=== PATIENT | male | born 1945 | race Caucasian/White ===

== ENCOUNTER → 2016-11-30 | Outpatient (CLI) | payer MEDICARE ==
--- NOTE | 2016-11-30 12:35 | XR ---
EXAMINATION TYPE: XR knee complete RT DATE OF EXAM: 11/30/2016 12:28 PM CLINICAL HISTORY: pain TECHNIQUE: Frontal, lateral and oblique images of the right foot are obtained. COMPARISON: None. FINDINGS: There is no acute fracture/dislocation evident. Total knee arthroplasty is in place with f emoral and tibial components appearing well seated. Small suprapatellar joint effusion noted. IMPRESS ION: There is no acute fracture or dislocation. ICD 10 NO FRACTURE, INITIAL EVALUATION
== END | disposition home or self-care (01) ==
LOC: RADXRMAIN 12:13
PROVIDERS: ATTEND Family Medicine
DX: M25.561 Pain in right knee (principal)

== ENCOUNTER 2018-04-25 10:09 | Day surgery (SDC) | payer MEDICARE ==
[2018-04-23 11:49] VITALS: BMI 30.2
[~2018-04-25 10:09] MED LIST: LACTATED RINGERS 1,000 ML IV SCH; LIDOCAINE 1% 20 ML VIAL (10MG/ML) FOR IV START INTRADERMA PRN
[2018-04-25 10:38] VITALS: RESP 16; TEMP 98.2
[2018-04-25] MEDS ORDERED: PROPOFOL 10 MG/ML 20 ML VIAL IV ONE (10:47)
--- NOTE | 2018-04-25 10:49 | P.GSHP ---
History of Present Illness H&P Date: 04/25/18 Chief Complaint: Colon cancer screening Patient here today for colonoscopy. Last colonoscopy over 10 years ago. No bowel related complaints. No family history of colon cancer. Past Medical History Past Medical History: Osteoarthritis (OA) History of Any Multi-Drug Resistant Organisms: None Reported Past Surgical History: Joint Replacement, Tonsillectomy Additional Past Surgical History / Comment(s): RIGHT AND LEFT TOTAL KNEE Past Anesthesia/Blood Transfusion Reactions: No Reported Reaction Smoking Status: Never smoker - Past Family History Father Family Medical History: Cancer Medications and Allergies Home Medications Medication Instructions Recorded Confirmed Type Doxazosin Mesylate 8 mg PO HS 04/23/18 04/25/18 History clonazePAM [KlonoPIN] 0.5 mg PO DAILY 04/23/18 04/25/18 History Allergies Allergy/AdvReac Type Severity Reaction Status Date / Time Penicillins Allergy Rash/Hives Verified 04/25/18 10:34 Surgical - Exam Vital Signs Temp Pulse Resp BP Pulse Ox 98.2 F 57 L 16 123/68 98 04/25/18 10:37 04/25/18 10:37 04/25/18 10:37 04/25/18 10:37 04/25/18 10:37 Physical exam: General: Well-developed, well-nourished HEENT: Normocephalic, sclerae nonicteric Abdomen: Nontender, nondistended Extremities: No edema Neuro: Alert and oriented Assessment and Plan (1) Colon cancer screening Narrative/Plan: Will proceed with colonoscopy at this time. Current Visit: Yes Status: Acute Code(s): Z12.11 - ENCOUNTER FOR SCREENING FOR MALIGNANT NEOPLASM OF COLON SNOMED Code(s): 584373865
--- NOTE | 2018-04-25 11:07 | P.PCN ---
Date of Procedure: 04/25/18 Procedure(s) Performed: PREOPERATIVE DIAGNOSIS: Colon cancer screening POSTOPERATIVE DIAGNOSIS: Ascending colon polyp PROCEDURE: Colonoscopy with snare polypectomy ANESTHESIA: MAC SURGEON: Derek Sky M.D. SPECIMENS: Polyp ENDOSCOPIC PROCEDURE: The patient was placed on the endoscopy table in the left decubitus position. The Olympus colonoscope was inserted into the anus and passed under direct visualization to the base of the cecum. The appendiceal orifice was visualized. From that point the scope was slowly withdrawn inspecting all surfaces carefully. There were no neoplastic inflammatory or polypoid lesions throughout the cecum. In the ascending colon a small polyp was identified and removed using the snare with cautery technique. The remainder of the ascending, transverse, descending, sigmoid and rectum appeared normal. There was no visible diverticulosis noted. Digital rectal examination was normal. The patient was taken to the recovery room in stable condition per anesthesia guidelines. RECOMMENDATIONS: Await biopsy results but anticipate follow-up colonoscopy 5 years
[2018-04-25 11:16] VITALS: PULSE 52
[2018-04-25 11:29] VITALS: BP 123/68
== END 2018-04-25 11:50 | disposition home or self-care (01) ==
LOC: ORWHC2ENDO 10:09
PROVIDERS: ATTEND Surgery
DX: Z12.11 Encounter for screening for malignant neoplasm of colon (principal); D12.2 Benign neoplasm of ascending colon; M19.90 Unspecified osteoarthritis, unspecified site; Z96.653 Presence of artificial knee joint, bilateral; Z79.899 Other long term (current) drug therapy; Z88.0 Allergy status to penicillin
CPT/HCPCS: 88305; 45385; J2704

== ENCOUNTER → 2020-10-16 | Outpatient (CLI) | payer MEDICARE ==
--- NOTE | 2020-10-16 11:00 | ECHOF ---
Referral Reason:R07.4 Atypical chest pain; R06.02 Sob MEASUREMENTS -------- HEIGHT: 175.3 cm WEIGHT: 106.6 kg BP: RVIDd: 3.6 cm (< 3.3) IVSd: 1.0 cm (0.6 - 1.1) LVIDd: 4.3 cm (3.9 - 5.3) LVPWd: 1.3 cm (0.6 - 1.1) IVSs: 1.4 cm LVIDs: 2.9 cm LVPWs: 1.7 cm LA Diam: 3.4 cm (2.7 - 3.8) LAESV Index (A-L): 25.30 ml/m Ao Diam: 3.0 cm (2.0 - 3.7) AV Cusp: 2.1 cm (1.5 - 2.6) MV EXCURSION: 19.089 mm (> 18.000) MV EF SLOPE: 44 mm/s (70 - 150) EPSS: 0.6 cm MV E Jonathan: 0.38 m/s MV DecT: 307 ms MV A Jonathan: 0.53 m/s MV E/A Ratio: 0.71 RAP: 5.00 mmHg RVSP: 13.93 mmHg FINDINGS -------- Sinus rhythm. This was a technically adequate study. LV size, wall thickness and systolic function are normal, with an EF greater than 55%. The left kalyan tricular size is normal. The right ventricle is normal in size. Normal LA size by volume 22+/-6 ml/m2. The right atrial size is normal. The aortic valve is trileaflet and appears structurally normal. There is mild aortic regurgitation. The mitral valve is normal. Mild mitral regurgitation is present. The tricuspid valve appears structurally normal. Mild tricuspid regurgitation present. Right vent ricular systolic pressure is normal at < 35 mmHg. Trace/mild (physiologic) pulmonic regurgitation. The aortic root size is normal. There is no pericardial effusion. CONCLUSIONS -------- 1. LV size, wall thickness and systolic function are normal, with an EF greater than 55%. 2. Normal LA size by volume 22+/-6 ml/m2. 3. There is mild aortic regurgitation. 4. Mild mitral regurgitation is present. 5. Mild tricuspid regurgitation present. 6. Trace/mild (physiologic) pulmonic regurgitation. 7. There is no pericardial effusion. [employer] DIRECT[employer]: Andreea Tellez RDCS
--- NOTE | 2020-10-16 14:12 | EST ---
EXERCISE STRESS AGE: 85 SEX: Male HT: 5'9" WT: 518 lbs. PROTOCOL: Zack STAGE: II DURATION OF EXERCISE: 4 minutes and 2 seconds HEART RATE REST: 73 BLOOD PRESSURE REST: 129/69 MAXIMUM HEART RATE ACHIEVED: 123 MAXIMUM BLOOD PRESSURE: 160/84 85% MPHR: 125 100% MPHR: 147 METS: 5.8 INDICATIONS: Shortness of breath CLINICAL INFORMATION: Baseline rhythm is sinus mechanism, rate of 73, normal axis and intervals, poor R progression, cannot exclude anterior myocardial infarction. Baseline blood pressure 129/69 mmHg. Patient exercised on Zack protocol for 4 minute 2 seconds reaching peak rate 123 beats per minute which is equal to 83% maximum predicted heart rate. Peak blood pressure 160/84 minutes Hg. The test was terminated secondary to severe dyspnea. There was no chest pain. Electrocardiograph monitoring revealed no evidence of diagnostic ischemic ST deviation. CONCLUSION: 1. Decreased exercise tolerance. 2. Severe dyspnea at peak exercise. 3. Nondiagnostic electrocardiograph stress testing secondary to the inability to achieve 85% maximum predicted heart rate. 4. If clinically indicated, a pharmacological imaging stress test is indicated. MMODL / IJN: [id number] /
== END | disposition home or self-care (01) ==
LOC: RADNMMAIN 08:02
PROVIDERS: ATTEND Family Medicine
DX: I08.3 Combined rheumatic disorders of mitral, aortic and tricuspid valves (principal); I37.1 Nonrheumatic pulmonary valve insufficiency; R06.09 Other forms of dyspnea
CPT/HCPCS: 93017; 93306

== ENCOUNTER → 2020-11-30 | Outpatient (CLI) | payer MEDICARE ==
[~2020-11-30] MED LIST changes: -LACTATED RINGERS 1,000 ML IV SCH; -LIDOCAINE 1% 20 ML VIAL (10MG/ML) FOR IV START INTRADERMA PRN; +REGADENOSON 0.4 MG/5 ML SYRINGE IV ONE
--- NOTE | 2020-11-30 12:57 | NM ---
EXAMINATION TYPE: NM stress lexiscan cardiolite DATE OF EXAM: 11/30/2020 COMPARISON: NONE HISTORY: SOB. TECHNIQUE: After the intravenous administration of 9.9 mCi Tc 99m Sestamibi - Cardiolite resting SPE CT images acquired 60 minutes post injection. The patient received 0.4mg Lexiscan, 24.9 mCi Tc 99m Sestamibi - Stress images obtained [address] injection FINDINGS: Review of stress and rest SPECT images demonstrates small inferior anterior septal wall mid aspect wi th diminished color perfusion on stress images versus rest images greatest mid segment seen on short axis and vertical long axis images.. Acute ischemia cannot be excluded. Gated analysis shows normal wall motion with an estimated left ventricular ejection fraction of 64 %. IMPRESSION: Possible area of acute ischemia in the LAD distribution anterior left ventricular wall. N eed to further investigate by direct catheter angiogram should be based on clinical and EKG correlati on. A Yellow level critical message alert has been initiated for Julian Salvador DO via the [employer] Critical Results System on 11/30/2020 12:54 PM. This message alert has been sent to Julian mora DO via the preferences provided by the clinician for the receipt of Radiology Critical Findings. Message ID [id number].
--- NOTE | 2020-12-01 08:24 | EST ---
EXERCISE STRESS AGE: 75 SEX: Male HT: 5'8" WT: 529 lbs. PROTOCOL: Lexiscan STAGE: N/A DURATION OF EXERCISE: N/A HEART RATE REST: 64 BLOOD PRESSURE REST: 134/62 MAXIMUM HEART RATE ACHIEVED: 82 MAXIMUM BLOOD PRESSURE: 134/82 85% MPHR: 125 100% MPHR: 147 METS: N/A INDICATIONS: Shortness of breath CLINICAL INFORMATION: Baseline rhythm is a sinus mechanism, rate of 64, normal axis and intervals, normal electrocardiogram. Baseline blood pressure 134/62 mmHg. Patient received injection of Lexiscan. Electrocardiograph monitoring revealed no evidence of diagnostic ischemic ST deviation. Cardiolite was injected per protocol. CONCLUSION: 1. Nondiagnostic electrocardiograph stress testing. 2. Nuclear images will be reported separately. MMODL / IJN: [id number] /
== END | disposition home or self-care (01) ==
LOC: RADNMMAIN 08:02
PROVIDERS: ATTEND Family Medicine
DX: R06.02 Shortness of breath (principal)
CPT/HCPCS: 93017; 78452; A9500; J2785

== ENCOUNTER → 2020-12-01 | Outpatient (CLI) | payer MEDICARE ==
[2020-12-01 10:50] LABS: HCT 50.6 % (39.0-53.0); HGB 16.8 gm/dL (13.0-17.5); MCH 32.1 pg (25.0-35.0); MCHC 33.3 g/dL (31.0-37.0); MCV 96.4 fL (80.0-100.0); Mean Platelet Volume 7.5; Platelet Count 189 k/uL (150-450); RBC 5.25 m/uL (4.30-5.90); RDW 13.1 % (11.5-15.5); WBC 6.1 k/uL (3.8-10.6)
[2020-12-01 11:07] LABS: Potassium 4.2 mmol/L (3.5-5.1)
== END | disposition home or self-care (01) ==
LOC: LABPAT 10:20
PROVIDERS: ATTEND Internal Medicine
DX: Z01.812 Encounter for preprocedural laboratory examination (principal); R94.39 Abnormal result of other cardiovascular function study
CPT/HCPCS: 36415; 80051; 82565; 84520; 85027

== ENCOUNTER 2020-12-04 05:51 | Day surgery (SDC) | payer MEDICARE ==
[2020-12-02 10:31] VITALS: BMI 34.0
[2020-12-04] MEDS ORDERED: ALPRAZolam 0.25 MG TAB PO PRN (06:07)
[2020-12-04] MEDS ORDERED: HEPARIN SODIUM,PORCINE 10,000 UNIT in SODIUM CHLORIDE 0.9% 1,000 ML IRRIGATION PRN (06:07)
[2020-12-04] MEDS ORDERED: ASPIRIN 325 MG TAB PO STA (06:07)
[2020-12-04] MEDS ORDERED: SODIUM CHLORIDE 0.9% 1,000 ML in EMPTY BAG 1 BAG IV ONE (06:07)
[2020-12-04] MEDS ORDERED: NITROGLYCERIN SL TABS 0.4 MG TAB SUBLINGUAL PRN (06:07)
[2020-12-04] MEDS ORDERED: HEPARIN SODIUM,PORCINE 2,500 UNIT in SODIUM CHLORIDE 0.9% 250 ML IRRIGATION PRN (06:07)
[2020-12-04 06:42] VITALS: RESP 16; TEMP 97.6
[2020-12-04] MEDS ORDERED: fentaNYL (PF) 50 MCG/ML 2 ML AMP IV ONE (07:35)
[2020-12-04] MEDS ORDERED: LIDOCAINE 1% INJ 10MG/ML (20 ML MDV) SQ ONE ×2 (07:35→07:36)
[2020-12-04] MEDS ORDERED: MIDAZOLAM 2 MG/2 ML VIAL IV ONE (07:36)
[2020-12-04] MEDS ORDERED: VERAPAMIL SYRINGE (5 MG/10 ML) INTRAARTER ONE (07:37)
[2020-12-04] MEDS ORDERED: IOPAMIDOL-370 125ML BTL INJ ONE (07:52)
[2020-12-04] MEDS ORDERED: RX INFO: IV CONTRAST WAS GIVEN 1 EACH MISC MISCELLANE PRN (08:14)
[2020-12-04 09:30] VITALS: PULSE 56
--- NOTE | 2020-12-04 13:03 | P.CARDCATH ---
Description of Procedure: PROCEDURES PERFORMED: Left heart catheterization, bilateral coronary angiography INDICATION: Abnormal stress test HISTORY: Dyspnea on exertion concerning for angina, abnormal stress test CONSENT:I have discussed the risks, benefits and alternative therapies for the above-mentioned procedure and for both sedation/analgesia as well as necessary blood product administration, if indicated, as they pertain to this patient. The patient has indicated understanding and acceptance of the risks and procedures discussed. PROCEDURE: After the risks, benefits and alternatives of the above mentioned procedure explained in detail with the patient, informed consent was obtained. Patient was taken to the catheterization lab and prepped and draped in usual fashion. 1% lidocaine was used to anesthetize the right radial artery. A 6- Trinidadian sheath was placed in the right radial artery using modified Seldinger technique. Left coronary angiography was performed with a 5-Trinidadian JL 3.5 catheter and right coronary angiography was performed with a 5-Trinidadian JR5 catheter in various views. A 5-Trinidadian pigtail catheter was inserted into the left ventricle and pressure measurements were obtained. The right radial sheath was removed and a TR band was placed with hemostasis achieved. The patient tolerated the procedure well. Patient was transported back to the post catheterization holding area in stable condition. Conscious Sedation: Patient was monitored under the direct supervision of vision of myself for conscious sedation using Versed and fentanyl for a total duration of 19 minutes HEMODYNAMICS: Aortic: 117/72 LV: 119/4, LVEDP 16mmHg SELECTIVE CORONARY ARTERIOGRAPHY: LEFT MAIN: The left main is a large caliber vessel which bifurcates into the LAD and circumflex. There is no significant stenosis. LEFT ANTERIOR DESCENDING CORONARY ARTERY: LAD is a large caliber vessel which wraps around to the apex. There is no significant stenosis. LEFT CIRCUMFLEX CORONARY ARTERY: Left circumflex is a moderate caliber vessel without significant stenosis. RIGHT CORONARY ARTERY: The right coronary artery is a large caliber vessel which gives off a PDA and PLV branch and is the dominant vessel. There is a mid 20- 30% RCA stenosis and otherwise normal coronary arteries. FINAL IMPRESSION: 1. Relatively normal coronary arteries as described above with only 20-30% mid RCA stenosis. 2. Normal left sided filling pressures PLAN: 1. Aggressive risk factor modification per most recent ACC/AHA guidelines. 2. Follow-up in the office in 1-2 weeks. 3. Workup of other causes of SOB.
[2020-12-04 13:52] VITALS: BP 131/66
== END 2020-12-04 13:29 | disposition home or self-care (01) ==
LOC: CATHCVL 05:51
PROVIDERS: ATTEND Internal Medicine
DX: I25.10 Atherosclerotic heart disease of native coronary artery without angina pectoris (principal); R94.39 Abnormal result of other cardiovascular function study; R06.09 Other forms of dyspnea; R05 Cough; R06.02 Shortness of breath; G25.0 Essential tremor; N40.0 Benign prostatic hyperplasia without lower urinary tract symptoms; Z79.899 Other long term (current) drug therapy; Z88.0 Allergy status to penicillin
CPT/HCPCS: 93458; C1769; C1894; J2250; J2001; J3010; J1644; Q9967

== ENCOUNTER → 2021-01-27 | Outpatient (CLI) | payer MEDICARE ==
--- NOTE | 2021-01-27 15:52 | CT ---
EXAMINATION TYPE: CT angio chest DATE OF EXAM: 01/27/2021 3:20 PM COMPARISON: Chest CT July 07, 2016 HISTORY: SOB CT DLP: 464.3 mGycm Automated exposure control for dose reduction was used. CONTRAST: CTA scan of the thorax is performed with IV Contrast, patient injected with 68cc mL of Isovue 370, pu lmonary embolism protocol. MIP images are created and reviewed. FINDINGS: LUNGS: Some subpleural reticulonodular opacities bilaterally are present most pronounced in mid to lo wer lungs could reflect worsening fibrotic changes as is more prominent or is progressed from 2016 CT . There is no pleural effusion or pneumothorax seen bilaterally. Tracheobronchial tree is patent. No bronchiectasis is noted. No suspicious greater than 5 mm new parenchymal nodule or mass is clearl y identified. MEDIASTINUM: There is suboptimal bolus without visualized central pulmonary embolism, cannot entirely exclude peripheral pulmonary embolism on this current study. There are persistent prominent prevasc ular along with paracarinal bilateral hilar lymph nodes. No pericardial effusion is seen. Heart siz e upper limits of normal. Coronary artery calcification is present. Bovine type arch. No aortic aneur ysm or dissection. OTHER: Small degree of flame-shaped bilateral gynecomastia. Spine is straightened with mild to moder ate multilevel spurring. IMPRESSION: Suboptimal study without central pulmonary embolism. Chronic parenchymal changes greatest in the lower lungs and greatest in the periphery shows interval progression or worsening from 2016 C T. Consider IPF. Correlate clinically.
== END | disposition home or self-care (01) ==
LOC: RADCTMAIN 14:34
PROVIDERS: ATTEND Internal Medicine
DX: R91.8 Other nonspecific abnormal finding of lung field (principal)
CPT/HCPCS: 82565; 84520; 71275; 36415; Q9967

== ENCOUNTER → 2021-03-31 | Outpatient (CLI) | payer MEDICARE ==
[2021-03-31 18:24] LABS: Anti-Smith Ab Interp NEGATIVE (NEGATIVE)
[2021-03-31 18:48] LABS: JO-1 IgG Antibody <0.2 AI; Scleroderma SC-70 Ab <0.2 AI
[2021-03-31 19:42] LABS: C Reactive Protein <0.4 mg/dL (0.0-0.8); Rheumatoid Factor, Qnt 7 IU/mL (0-15)
[2021-04-01 08:14] LABS: Angiotensin-1 Converting Enz. 31 U/L (8-52)
[2021-04-01 13:57] LABS: C-ANCA <1:20 Titer (<1:20)
== END | disposition home or self-care (01) ==
LOC: LABWHC1 09:32
PROVIDERS: ATTEND Internal Medicine
DX: J84.112 Idiopathic pulmonary fibrosis (principal)
CPT/HCPCS: 36415; 82164; 85652; 86038; 86140; 86235; 86255; 86431

== ENCOUNTER → 2021-05-12 | Outpatient (CLI) | payer MEDICARE ==
[2021-05-12 22:17] LABS: Albumin 4.3 g/dL (3.80-4.90); Albumin/Globulin Ratio 1.95 (1.60-3.17); Bilirubin, Conjugated 0.3 mg/dL (0.20-0.40); Bilirubin,Unconjugated 0.7 mg/dL; Globulin 2.2 g/dL (1.6-3.3); Total Protein 6.5 g/dL (6.2-8.2)
== END | disposition home or self-care (01) ==
LOC: LABWHC1 11:59
PROVIDERS: ATTEND Internal Medicine
DX: J84.112 Idiopathic pulmonary fibrosis (principal)
CPT/HCPCS: 36415; 80076

== ENCOUNTER → 2022-02-23 | Outpatient (CLI) | payer MEDICARE ==
[2022-02-23 18:19] LABS: ALT 22 U/L (10-49); AST 23 U/L (14-35); Albumin 4.2 g/dL (3.8-4.9); Albumin/Globulin Ratio 1.71 (1.60-3.17); Alkaline Phosphatase 52 U/L (41-126); Bilirubin, Conjugated <0.20 mg/dL (0.20-0.40); Globulin 2.5 g/dL (1.6-3.3); Total Protein 6.6 g/dL (6.2-8.2)
== END | disposition home or self-care (01) ==
LOC: LABWHC1 11:47
PROVIDERS: ATTEND Internal Medicine
DX: J84.112 Idiopathic pulmonary fibrosis (principal)
CPT/HCPCS: 36415; 80076

== ENCOUNTER → 2022-06-27 | Outpatient (CLI) | payer MEDICARE ==
[2022-06-27 18:01] LABS: ALT 20 U/L (10-49); AST 26 U/L (14-35); Albumin 4.1 g/dL (3.8-4.9); Albumin/Globulin Ratio 1.86 (1.60-3.17); Alkaline Phosphatase 47 U/L (41-126); Bilirubin, Conjugated <0.20 mg/dL (0.20-0.40); Globulin 2.2 g/dL (1.6-3.3); Total Protein 6.3 g/dL (6.2-8.2)
== END | disposition home or self-care (01) ==
LOC: LABWHC1 11:24
PROVIDERS: ATTEND Internal Medicine
DX: J84.112 Idiopathic pulmonary fibrosis (principal)
CPT/HCPCS: 36415; 80076

== ENCOUNTER → 2022-06-27 | Outpatient (CLI) | payer MEDICARE ==
--- NOTE | 2022-06-27 12:39 | CT ---
EXAMINATION TYPE: CT chest wo con DATE OF EXAM: 06/27/2022 COMPARISON: Prior CT January 27, [address] 2016 HISTORY: Pulmonary fibrosis CT DLP: 805.40 mGycm. Automated Exposure Control for Dose Reduction was Utilized. TECHNIQUE: CT scan of the thorax is performed without IV contrast. High resolution protocol with 1 m m sequences obtained at 10 mm intervals in supine and prone technique FINDINGS: LUNGS: Low lung volumes are redemonstrated. Peripheral reticulation is redemonstrated bilaterally yulia ng mild to moderate in appearance with somewhat prolonged involvement. Findings more prominent in the lung bases where there is central extension and groundglass opacities with some tiny cystic change i dentified. Some early honeycombing is present. No pleural effusion or pneumothorax seen bilaterally. No suspicious masses. MEDIASTINUM: Lack of IV contrast and technique are noted to limit evaluation for mediastinal and sabrina cially hilar adenopathy. Somewhat prominent but subcentimeter lymph nodes throughout the mediastinum are redemonstrated. Mild cardiomegaly again seen. No pericardial effusion. OTHER: No additional significant abnormality is seen. IMPRESSION: Mild to moderate bilateral diffuse peripheral fibrotic change greatest in the lower lungs . Some progression in findings from 2016 CT noted. Mild cardiomegaly and low lung volumes demonstrate d.
== END | disposition home or self-care (01) ==
LOC: RADCTMAIN 10:36
PROVIDERS: ATTEND Internal Medicine
DX: J84.112 Idiopathic pulmonary fibrosis (principal); I51.7 Cardiomegaly
CPT/HCPCS: 71250

== ENCOUNTER → 2023-01-21 | Outpatient (CLI) | payer MEDICARE ==
[2023-01-22 07:16] LABS: ALT 22 U/L (10-49); AST 23 U/L (14-35); Albumin 3.6 g/dL (3.8-4.9); Albumin/Globulin Ratio 1.73 (1.60-3.17); Alkaline Phosphatase 51 U/L (41-126); Bilirubin, Conjugated <0.20 mg/dL (0.20-0.40); Globulin 2.1 g/dL (1.6-3.3); Total Protein 5.8 g/dL (6.2-8.2)
== END | disposition home or self-care (01) ==
LOC: LABWHC1 10:51
PROVIDERS: ATTEND Internal Medicine
DX: J84.112 Idiopathic pulmonary fibrosis (principal)
CPT/HCPCS: 36415; 80074; 80076

== ENCOUNTER → 2023-12-19 | Outpatient (CLI) | payer MEDICARE ==
[2023-12-19 16:10] LABS: ALT 19 U/L (10-49); AST 25 U/L (14-35); Alkaline Phosphatase 54 U/L (41-126); Total Bilirubin 0.5 mg/dL (0.3-1.2)
[2023-12-19 16:11] LABS: Albumin 4.2 g/dL (3.8-4.9); Albumin/Globulin Ratio 1.83 Ratio (1.60-3.17); Bilirubin, Conjugated <0.20 mg/dL (0.20-0.40); Bilirubin,Unconjugated >0.30 mg/dL (0.20-1.00); Globulin 2.3 g/dL (1.6-3.3); Total Protein 6.5 g/dL (6.2-8.2)
--- NOTE | 2023-12-26 13:30 | CT ---
EXAMINATION TYPE: CT chest wo con CT DLP: 1078.2 mGycm, Automated exposure control for dose reduction was used. DATE OF EXAM: 12/19/2023 10:16 AM COMPARISON: CT chest 06/27/2022 and before . CLINICAL INDICATION:Male, 78 years old with history of J84.112 PULMONARY FIBROSIS; PHH, pulmonary fib rosis TECHNIQUE: Noncontrast CT of the chest was performed. High resolution protocol with axial 1 mm slice thicknesses at 10 mm intervals in supine and prone position. Contrast used: mL of (None if empty) Oral contrast used: (None if empty) FINDINGS: Lung/pleura: Lung volumes again appear somewhat diminished. Peripheral mild to moderate fibrotic changes bilateral ly, relatively diffusely but greatest in the lower lobes where there is also evidence of early honeyc ombing. There are minor interspersed groundglass opacities in the lung bases. No evidence of signific ant air trapping. There is thickening along the lateral aspect of the right oblique fissure. No sizab le pulmonary nodules or masses are identified. Calcified granuloma in the lateral subpleural left upp er lobe image 121 series 8. There are several tiny calcified granulomas in the right lower lobe also There is no consolidation. No pleural effusion or pneumothorax. Mediastinum: Central airways are patent. There is borderline mild bronchiectasis in the lower lobes Evaluation is limited by lack of contrast and high-resolution technique, however the mediastinum demo nstrates several nonenlarged lymph nodes with no enlarged by CT criteria nodes evident. Heart is mild ly enlarged, and there are moderate coronary artery calcifications. Dilatation of ascending aorta to 4.1 cm. Pulmonary trunk is borderline enlarged at 3 cm, but the right and left main pulmonary arterie s are even more prominent measuring 3.1 cm on the right and 3 cm on the left. Other: Chest wall soft tissues redemonstrate mild gynecomastia-like changes bilaterally. No enlarged axillar y lymph nodes. Limited views of the upper abdomen show no significant abnormality. Mild degenerative changes of the thoracic spine. No acute osseous pathology is evident. IMPRESSION: 1. Mild to moderate bilateral peripheral fibrotic changes, with a lower lobe predominance redemonstr ated. Some early honeycombing is present. There is very slight progression of findings since the prio r study 06/27/2022. 2. Minor interspersed groundglass opacities in the lung bases. 3. Incidentals: Mild cardiomegaly, coronary arterial calcifications, fusiform ectasia of the ascendi ng aorta 4.1 cm, and enlarged pulmonary arteries which can be seen with pulmonary hypertension.
== END | disposition home or self-care (01) ==
LOC: RADCTMAIN 09:41
PROVIDERS: ATTEND Internal Medicine
DX: J84.112 Idiopathic pulmonary fibrosis (principal); R91.8 Other nonspecific abnormal finding of lung field
CPT/HCPCS: 36415; 71250; 80076

== ENCOUNTER → 2024-07-16 | Outpatient (CLI) | payer MEDICARE ==
[2024-07-16 13:41] LABS: Basophils # (A) 0.05 X 10*3/uL (0.00-0.10); Basophils % (A) 0.6 %; Eosinophils % (A) 1.1 %; HCT 43.5 % (39.6-50.0); Lymphocytes # (A) 1.92 X 10*3/uL (0.90-5.00); Lymphocytes % (A) 21.2 %; MCH 32.9 pg (27.0-32.0); MCHC 32.2 g/dL (32.0-37.0); MCV 102.1 FL (80.0-97.0); Mean Platelet Volume 10.6 FL (9.5-12.2); Monocytes # (A) 0.86 X 10*3/uL (0.20-1.00); Monocytes % (A) 9.5 %; NRBC Per 100 WBC 0 X 10*3/uL (0.00-0.01); Neutrophils # (A) 6.11 X 10*3/uL (1.80-7.70); Neutrophils % (A) 67.3 %; Platelet Count 244 X 10*3/uL (140-440); RBC 4.26 X 10*6/uL (4.40-5.60); RDW 13.5 % (11.5-14.5); WBC 9.07 X 10*3/uL (4.50-10.00)
[2024-07-16 14:12] LABS: ALT 20 U/L (10-49); AST 25 U/L (14-35); Albumin 4.2 g/dL (3.8-4.9); Albumin/Globulin Ratio 1.91 Ratio (1.60-3.17); Alkaline Phosphatase 54 U/L (41-126); BUN/Creat Ratio 19.73 Ratio (12.00-20.00); Bilirubin, Conjugated <0.20 mg/dL (0.20-0.40); Bilirubin,Unconjugated >0.50 mg/dL (0.20-1.00); Blood Urea Nitrogen 29.6 mg/dL (9.0-27.0); Calcium 9.2 mg/dL (8.7-10.3); Chloride 108 mmol/L (96-109); Chol/HDL Ratio 2.68 Ratio; Globulin 2.2 g/dL (1.6-3.3); Glucose 97 mg/dL (70-110); LDL Cholesterol,Calculated 46.6 mg/dL (0.0-131.0); Potassium 4.4 mmol/L (3.5-5.5); Sodium 142 mmol/L (135-145); T4, Free (Free Thyroxine) 0.97 ng/dL (0.80-1.80); Total Bilirubin 0.7 mg/dL (0.3-1.2); Total Protein 6.4 g/dL (6.2-8.2)
== END | disposition home or self-care (01) ==
LOC: LABWHC1 07:10
PROVIDERS: ATTEND Internal Medicine
CPT/HCPCS: 36415; 80053; 80061; 82248; 83036; 84439; 84443; 85025

== ENCOUNTER → 2025-01-17 | Outpatient (CLI) | payer MEDICARE | END | disposition home or self-care (01) | LOC: LABWHC1 14:29 | PROVIDERS: ATTEND Internal Medicine | DX: J84.112 Idiopathic pulmonary fibrosis (principal) | CPT/HCPCS: 36415; 81596 ==